=== PATIENT | male | born 1980 | race African-American/Black ===

== ENCOUNTER 2019-04-30 14:42 | Emergency (ER) | payer OTHER ==
[~2019-04-30] VITALS: Ht 185.4 cm; Wt 129.3 kg
--- OUTSIDE RECORDS SUMMARY | 2019-04-30 14:46 | XMS REPORT ---
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 Moises [email or web address] Transcribed Date/Time: 04/25/2019 ( 34) By: [email or web address] Orig Print D/T: S: 04/25/2019 (237) BAILEY Mckeon NAME: CANDICEAMIRA [address] [place] [address] PHYS: Davis Long [place] [id number] : 1980 AGE: 38 SEX: M LOC: [facility] PHONE #: [phone] EXAM DATE: 04/25/2019 STATUS: PRE ER FAX #: RAD NO: DC Dt: PAGE 1 Signed Report
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
[2019-04-30 16:41] VITALS: BP 161/91
== END 2019-04-30 16:48 | disposition home or self-care (01) ==
LOC: FSED 14:42
DX: R52 Pain, unspecified (principal); J90 Pleural effusion, not elsewhere classified; V68 Occupant of heavy transport vehicle injured in noncollision transport accident
CPT/HCPCS: 71250; 99283